=== PATIENT | female | born 1960 | race Caucasian/White ===

== ENCOUNTER 2017-03-08 10:42 | Emergency (ER) | payer BC ==
[~2017-03-08] VITALS: Ht 162.6 cm; Wt 78.2 kg
[~2017-03-08 10:42] MED LIST: COUMADIN5 MG; COUMADIN5 MG PO; Coumadin,Jantoven PO; DEXILANT60 MG PO; Feosol PO; Lovenox SC; PRAVASTATIN SOD40 MG PO; PRISTIQ50 MG PO; Percocet 5/325,Endoc PO; Pristiq PO; TOPROL XL50 MG PO; Toprol XL PO
[2017-03-08] MEDS ORDERED: ASPIRIN81 M2 PO (11:32)
[2017-03-08] MEDS ORDERED: DESVENLAFAXINE100 M3 PO (11:32)
[2017-03-08] MEDS ORDERED: HYDROCHLOROTH12.5 M3 PO (11:33)
[2017-03-08] MEDS ORDERED: LEVOTHYROXINE25 MCG PO (11:33)
[2017-03-08] MEDS ORDERED: LINZESS145 MCG PO (11:33)
[2017-03-08] MEDS ORDERED: METOPROLOL SUC100 MG PO (11:33)
[2017-03-08 12:14] LABS: BASOPHIL COUNT 0.1 K/uL (0-0.1); EOSINOPHIL (%) 2.3 % (0-5); EOSINOPHIL COUNT 0.2 K/uL (0-0.3); HEMATOCRIT 40.2 % (36.0-46.0); IMMATURE GRANULOCYTE (%) 0.4 % (0.0-0.7); INSTRUMENT ABS NEUTROPHIL CT 5.1 K/uL; LYMPHOCYTE COUNT 2.4 K/uL (1.0-2.8); MCH 29.9 PG (29.0-34.0); MCHC 32.8 G/DL (30.0-36.0); MONOCYTE (%) 8.7 % (3-12); MONOCYTE COUNT 0.7 K/uL (0-0.8); NEUTROPHIL (%) 59.2 % (45-76); NEUTROPHIL COUNT 5.1 K/uL (1.8-6.4); PLATELET COUNT 269 K/uL (156-360); RBC DIS.WIDTH-CV 13.2 % (11.8-14.6); RBC DIS.WIDTH-SD 44.2 % (39-53); RED BLOOD COUNT 4.42 M/uL (3.80-5.20); WHITE BLOOD COUNT 8.6 K/uL (4.1-10.2)
[2017-03-08 12:21] LABS: CHLORIDE 108 mEq/L (99-109); POTASSIUM 5.1 mEq/L (3.7-5.4); SODIUM 142 mEq/L (136-147)
[2017-03-08 12:24] LABS: GLUCOSE 101 mg/dL (70-99)
[2017-03-08 12:25] LABS: ANION GAP 10 MEQ/L (2-14)
[2017-03-08 12:26] LABS: D-DIMER ELISA 0.38 mg/L FEU (< 0.57); PROTHROMBIN TIME 10.2 (9.2-11.2); PTT 25.3 (25-32); TOTAL BILIRUBIN 0.4 mg/dL (0.0-1.0)
[2017-03-08 12:27] LABS: ALKALINE PHOSPHATASE 55 IU/L (3-129); GFR ESTIMATE (CALCULATED) > 59 mL/min/
[2017-03-08 12:28] LABS: UREA NITROGEN (BUN) 14 mg/dL (9-23)
[2017-03-08] MEDS ORDERED: NAPROXEN500 MG PO (12:36)
[2017-03-08 13:02] VITALS: BP 135/81
== END 2017-03-08 13:03 | disposition home or self-care (01) ==
LOC: EME 10:42
PROVIDERS: Physician Assistant
DX: S86.101A Unspecified injury of other muscle(s) and tendon(s) of posterior muscle group at lower leg level, right leg, initial encounter (principal); X58.XXXA Exposure to other specified factors, initial encounter; I10 Essential (primary) hypertension; K21.9 Gastro-esophageal reflux disease without esophagitis; Z86.718 Personal history of other venous thrombosis and embolism; Z86.711 Personal history of pulmonary embolism
CPT/HCPCS: 80053; 85025; 85379; 85610; 85730; 99281; 99284

== ENCOUNTER 2017-11-25 08:51 | Day surgery (SDC) | payer BC ==
[~2017-11-25] VITALS: Ht 162.6 cm; Wt 76.2 kg
[~2017-11-25 08:51] MED LIST changes: +ASPIRIN81 M2 PO; +DESVENLAFAXINE100 M3 PO; +HYDROCHLOROTH12.5 M3 PO; +LEVOTHYROXINE25 MCG PO; +LINZESS145 MCG PO; +METOPROLOL SUC100 MG PO; +NAPROXEN500 MG PO; +PRISTIQ100 MG PO; +SYNTHROID25 MCG PO; +TOPROL XL100 MG PO
[2017-11-25 09:16] VITALS: BP 157/88
[2017-11-25] MEDS ORDERED: NORCO 7.5/321 TABLET PO (12:17)
[2017-11-25 13:25] VITALS: BP 161/84
[2017-11-25 14:45] VITALS: BP 124/27
[2017-11-25 15:40] VITALS: BP 120/60
== END 2017-11-25 15:55 | disposition home or self-care (01) ==
LOC: SDC 08:51
DX: K64.8 Other hemorrhoids (principal); K64.4 Residual hemorrhoidal skin tags; Z86.711 Personal history of pulmonary embolism; Z86.718 Personal history of other venous thrombosis and embolism; Z79.82 Long term (current) use of aspirin; E78.00 Pure hypercholesterolemia, unspecified; I10 Essential (primary) hypertension; K21.9 Gastro-esophageal reflux disease without esophagitis; D50.0 Iron deficiency anemia secondary to blood loss (chronic); Z82.49 Family history of ischemic heart disease and other diseases of the circulatory system; Z83.3 Family history of diabetes mellitus; Z88.0 Allergy status to penicillin
CPT/HCPCS: 88304; J1100; J1170; J1580; J2250; J2405; J3010; J7050; S0030